=== PATIENT | male | born 1995 ===

== ENCOUNTER 2018-06-08 13:58 | Emergency (ER) | payer MEDICARE, MEDICAID ==
[2018-06-08 14:03] VITALS: BP 140/77; RESP 16; TEMP 98.1; O2SAT 99
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
[2018-06-08 16:03] VITALS: PULSE 88
== END 2018-06-08 16:02 | disposition home or self-care (01) ==
LOC: H.ER 13:58
DX: F84.0 Autistic disorder (principal); Z00.8 Encounter for other general examination

== ENCOUNTER 2018-09-06 17:14 | Emergency (ER) | payer MEDICARE, MEDICAID ==
[2018-09-06 17:20] VITALS: TEMP 97.8
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
[2018-09-06] MEDS ORDERED: Tdap Vaccine 0.5 ml Vial (10-64 yrs) IM ONE ×2 (20:12→20:27)
[2018-09-06 20:37] VITALS: BP 128/84; PULSE 89; RESP 17
[2018-09-06 20:51] VITALS: O2SAT 96
== END 2018-09-06 20:37 | disposition home or self-care (01) ==
LOC: H.ER 17:14
DX: S01.01XA Laceration without foreign body of scalp, initial encounter (principal); F84.0 Autistic disorder; Z23 Encounter for immunization; W20.8XXA Other cause of strike by thrown, projected or falling object, initial encounter
CPT/HCPCS: 12002; 90471; 90715; 96372; 99283; J2060

== ENCOUNTER 2018-09-14 17:55 | Emergency (ER) | payer MEDICARE, MEDICAID ==
[2018-09-14 18:11] VITALS: BP 137/80; PULSE 92; RESP 16; TEMP 98.3; O2SAT 97
--- NOTE | 2018-09-14 18:27 | ED PDOC ---
HPI: Wound Care - HPI Time Seen by Provider: 09/14/18 18:10 Chief Complaint (Nursing): Suture/Staple Removal Chief Complaint (Provider): Staple Removal History Per: Family (mother) Exam Limitations: no limitations Onset/Duration Of Symptoms: Days (x8) Current Symptoms Are (Timing): Better Additional Complaint(s): 22 year old male presents to the ED with mother for a staple removal. Patient was seen here on 09/06/2018 when he had one staple placed to his parietal scalp. At this time, he offers no complaints. PMD: Oren Rojas Past Medical History Reviewed: Historical Data, Nursing Documentation, Vital Signs Vital Signs: Last Vital Signs Temp 98.3 F 09/14/18 18:08 Pulse 92 H 09/14/18 18:08 Resp 16 09/14/18 18:08 BP 137/80 09/14/18 18:08 Pulse Ox 97 09/14/18 18:08 - Medical History PMH: Denies: Diabetes, Hepatitis, HIV, HTN, Seizures, Sexually Transmitted Disease - Surgical History Surgical History: No Surg Hx - Family History Family History: States: Unknown Family Hx - Living Arrangements Living Arrangements: With Family - Social History Current smoker - smoking cessation education provided: No Alcohol: None Drugs: Denies - Allergies Allergies/Adverse Reactions: Allergies Allergy/AdvReac Type Severity Reaction Status Date / Time No Known Allergies Allergy Verified 09/14/18 18:06 Review of Systems ROS Statement: Except As Marked, All Systems Reviewed And Found Negative Skin: Positive for: Other (staple removal right parietal scalp) Physical Exam - Reviewed Nursing Documentation Reviewed: Yes Vital Signs Reviewed: Yes - Physical Exam Appears: Positive for: No Acute Distress Head Exam: Positive for: ATRAUMATIC ([address] to right parietal scalp with no surrounding erythema, discharge, or swelling), NORMOCEPHALIC Skin: Positive for: Normal Color. Negative for: Rash - ECG O2 Sat by Pulse Oximetry: 97 (RA) Pulse Ox Interpretation: Normal Medical Decision Making Medical Decision Making: Time: 1814 Initial Impression: staple removal Initial Plan: --Staple removed without difficulty in ED by CATERINA Patient to be discharged home. Scribe Attestation: Documented by Barbara Kinsey, acting as a scribe for Felix Hernandez PA-C. Provider Scribe Attestation: All medical record entries made by the Scribe were at my direction and persona lly dictated by me. I have reviewed the chart and agree that the record accurately reflects my personal performance of the history, physical exam, medical decision making, and the department course for this patient. I have also personally directed, reviewed, and agree with the discharge instructions and disposition. Disposition - Clinical Impression Clinical Impression: Removal of staple - Disposition Referrals: [facility] [Outside] Disposition: Routine/Home Disposition Time: 18:19 Condition: IMPROVED Additional Instructions: CB GREGORY, thank you for letting us take care of you today. Your provider was Lesley Stewart MD and you were treated for SUTURE REMOVAL. The emergency medical care you received today was directed at your acute symptoms. If you were prescribed any medication, please fill it and take as directed. It may take several days for your symptoms to resolve. Return to the Emergency Department if your symptoms worsen, do not improve, or if you have any other problems. Please contact your doctor or call one of the physicians/clinics you have been referred to that are listed on the Patient Visit Information form that is included in your discharge packet. Bring any paperwork you were given at discharge with you along with any medications you are taking to your follow up visit. Our treatment cannot replace ongoing medical care by a primary care provider outside of the emergency department. Thank you for allowing the [facility] team to be part of your care today. If you had an X-Ray or CT scan: A Radiologist will review the ED reading if any change in treatment is needed we will contact you. If you had a blood, urine, or wound culture: It will take several days for the results, if any change in treatment is needed we will contact you. If you had an STI test: It will take 48 hours for the results. Please call after 1 week if you have not heard back. Instructions: Staple Removal Forms: [facility] (Maltese) Print Language: ZAMBIAN
== END 2018-09-14 18:19 | disposition home or self-care (01) ==
LOC: H.ER 17:55
DX: Z48.02 Encounter for removal of sutures (principal)

== ENCOUNTER 2018-11-11 15:52 | Emergency (ER) | payer MEDICARE, MEDICAID ==
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
--- NOTE | 2018-11-11 17:44 | RAD ---
PROCEDURE: Left Wrist Radiographs. HISTORY: cut COMPARISON: None available. FINDINGS: BONES: No acute displaced fracture. JOINTS: No dislocation. SOFT TISSUES: Mild soft tissue swelling. No evidence of radiopaque foreign body OTHER FINDINGS: None. IMPRESSION: Mild soft tissue swelling. No acute displaced fracture, dislocation, or significant joint effusion identified. If symptoms persist, or if there is continued clinical concern, x-ray follow-up in 7-10 days should be considered.
--- NOTE | 2018-11-11 17:49 | RAD ---
PROCEDURE: Left Hand Radiographs. HISTORY: cut COMPARISON: None available. FINDINGS: BONES: No acute displaced fracture. JOINTS: No dislocation. SOFT TISSUES: Unremarkable. No evidence of radiopaque foreign body. OTHER FINDINGS: None. IMPRESSION: No acute displaced fracture, dislocation, or significant joint effusion identified. If symptoms persist, or if there is continued clinical concern, x-ray follow-up in 7-10 days should be considered.
--- NOTE | 2018-11-11 19:05 | ED PDOC ---
- ECG O2 Sat by Pulse Oximetry: 98 Medical Decision Making Medical Decision Makin:00 Patient endorsed to this provider from Dr. Cheatham. Pending crisis evaluation. 20:24 As per crisis evaluation, patient is stable for discharge with diagnosis of autism by Dr. Baker. Scribe Attestation: Documented by Elias Meyer acting as a scribe for Moi Goff MD. Provider Scribe Attestation: All medical record entries made by the Scribe were at my direction and personally dictated by me. I have reviewed the chart and agree that the record accurately reflects my personal performance of the history, physical exam, medical decision making, and the department course for this patient. I have also personally directed, reviewed, and agree with the discharge instructions and disposition. Disposition - Clinical Impression Clinical Impression: Autism, Cut of hand - POA Present On Arrival: None - Disposition Referrals: [facility] [Outside] Disposition: Routine/Home Disposition Time: 20:24 Condition: STABLE Instructions: Autism Spectrum Disorder Forms: [facility] (Comoran)
[2018-11-11 20:40] VITALS: BP 116/62; PULSE 76; RESP 18; TEMP 98.2
[2018-11-12 03:04] VITALS: O2SAT 98
== END 2018-11-11 20:39 | disposition home or self-care (01) ==
LOC: H.ER 15:52
DX: F84.0 Autistic disorder (principal); S61.412A Laceration without foreign body of left hand, initial encounter; W22.8XXA Striking against or struck by other objects, initial encounter; Y92.89 Other specified places as the place of occurrence of the external cause
CPT/HCPCS: 73110; 73130; 96372; 99283; J2060